=== PATIENT | female | born 1945 | race Caucasian/White ===

== ENCOUNTER → 2016-06-19 | Outpatient (CLI) | payer OTHER, MEDICARE | LOC: FIMAGING 10:24 | PROVIDERS: ATTEND Physician Assistant | DX: R06.00 Dyspnea, unspecified (principal) ==

== ENCOUNTER 2016-06-25 00:29 | Observation (INO) | payer OTHER, MEDICARE ==
[2016-06-25] MEDS ORDERED: ASPIRIN 325 MG TAB PO ONE (00:40)
--- NOTE | 2016-06-25 01:01 | CPEKG ---
Heart Rate: 80 RR Interval: 750 P-R Interval: 176 QRSD Interval: 72 QT Interval: 380 QTC Interval: 439 P [place]: 63 QRS [place]: 1 T Wave [place]: 46 EKG Severity - ABNORMAL ECG - EKG Impression: SINUS RHYTHM EKG Impression: ABNRM R PROG, CONSIDER ASMI OR LEAD PLACEMENT Electronically Signed By: Donald Elam 25-Jun-2016 02:30:25
--- NOTE | 2016-06-25 01:07 | EDPHY ---
H & P Stated Complaint: Low BP reading; dizziness, syncopal episode, nasal congestion Time Seen by Provider: 06/25/16 00:45 HPI/ROS: Chief Complaint: Syncope HPI: 71-year-old female presenting after a syncopal event about an hour and half prior to arrival. Patient states that she has had a sinus type up straight respiratory infection for the past few days. She was seen by her primary care physician last Tuesday and her blood pressure is noted be the 180s. Her doctor has been having her monitor her blood pressure daily. Patient states that she was up at around 11:30 a.m. and decided to check her blood pressure at that time. She was sitting down at the table in checking her blood pressure was noted that it was 99/57. Immediately after that she felt lightheaded and had a witnessed syncopal episode. Patient was noted to be diaphoretic by her at that time. She was unresponsive for at least 10- 20 seconds. She did not fall or hit her head. Patient states that she did take a lisinopril 3 days ago but after that her blood pressure was 90/8 and she felt lightheaded with that and so has not been taking any further medications. She also has been having episodes of feeling her heart fluttering for the past several months. She is scheduled to see a ambulatory technologist for further evaluation. She has been having some viral upper respiratory symptoms and been taking some Mucinex. No cough. No nausea or vomiting. No chest pain or shortness of breath. No fevers or chills. She has not had any palpitations recently. ROS: 10 point Review of Systems is negative except as noted in the HPI. PMH: Hypoparathyroidism Medications: Vitamin-D and calcium Allergies: Sulfa Social History: No smoking, occasional alcohol, no recreational drug use Family History: Has a family history of heart disease in her sister and her uncle. Father had multiple CVAs. Physical Exam: Gen: Awake, Alert, No Distress HEENT: Nose: no rhinorrhea Eyes: PERRLA, EOMI Mouth: Moist mucosa Neck: Supple, no JVD Chest: nontender, lungs clear to auscultation Heart: S1, S2 normal, no murmur Abd: Soft, non-tender, no guarding Back: no CVA tenderness, no midline tenderness Ext: no edema, non-tender Skin: no rash Neuro: CN II-XII intact, Sensation grossly intact, Strength 5/5 in bilateral upper and lower extremities - Personal History Current Tetanus/Diphtheria Vaccine: Yes Current Tetanus Diphtheria and Acellular Pertussis (TDAP): No - Medical/Surgical History Hx Asthma: No Hx Chronic Respiratory Disease: No Hx Diabetes: No Hx Cardiac Disease: No Hx Renal Disease: No Hx Cirrhosis: No Hx Alcoholism: No Hx HIV/AIDS: No Hx Splenectomy or Spleen Trauma: No Other PMH: denies - Social History Smoking Status: Former smoker Constitutional: Initial Vital Signs Temperature (C) 36.5 C 06/25/16 00:34 Heart Rate 88 06/25/16 00:34 Respiratory Rate 20 06/25/16 00:34 Blood Pressure 135/90 H 06/25/16 00:34 O2 Sat (%) 99 06/25/16 00:34 O2 Delivery Mode Room Air Allergies/Adverse Reactions: Sulfa (Sulfonamide Antibiotics) Allergy (Verified 06/10/09 15:21) sulfabenzamide [Sulfabenzamide] Allergy (Verified 06/10/09 15:21) Home Medications: Medication Instructions Recorded Fosamax 06/10/09 Medical Decision Making - Diagnostics EKG Interpretation: EC, sinus rhythm with a rate of 80. Normal axis, normal intervals, there is poor R-wave progression. No acute ST or T-wave changes. ED Course/Re-evaluation: CBC, electrolytes and troponin are unremarkable. Patient has been resting comfortably with a normal blood pressure. I have discussed with , hospitalist. Will admit to telemetry for syncope workup. - Data Points Laboratory Results: Laboratory Results 06/25/16 01:10 06/25/16 01:10 06/25/16 06/25/16 01:10 01:10 WBC 7.20 10^3/uL 10^3/uL (3.80-9.50) RBC 4.72 10^6/uL 10^6/uL (4.18-5.33) Hgb 15.3 g/dL g/dL (12.6-16.3) Hct 44.6 % % (38.0-47.0) MCV 94.5 fL fL (81.5-99.8) MCH 32.4 pg pg (27.9-34.1) MCHC 34.3 g/dL g/dL (32.4-36.7) RDW 12.0 % % (11.5-15.2) Plt Count 206 10^3/uL 10^3/uL (150-400) MPV 11.5 fL fL (8.7-11.7) Neut % (Auto) 69.0 % % (39.3-74.2) Lymph % (Auto) 16.5 % % (15.0-45.0) [place] % (Auto) 12.6 % % (4.5-13.0) Eos % (Auto) 1.0 % % (0.6-7.6) Baso % (Auto) 0.6 % % (0.3-1.7) Nucleat RBC Rel Count 0.0 % % (0.0-0.2) Absolute Neuts (auto) 4.97 10^3/uL 10^3/uL (1.70-6.50) Absolute Lymphs (auto) 1.19 10^3/uL 10^3/uL (1.00-3.00) Absolute Monos (auto) 0.91 10^3/uL H 10^3/uL (0.30-0.80) Absolute Eos (auto) 0.07 10^3/uL 10^3/uL (0.03-0.40) Absolute Basos (auto) 0.04 10^3/uL 10^3/uL (0.02-0.10) Absolute Nucleated RBC 0.00 10^3/uL 10^3/uL (0-0.01) Immature Gran % 0.3 % % (0.0-1.1) Immature Gran # 0.02 10^3/uL 10^3/uL (0.00-0.10) Sodium 140 mEq/L mEq/L (134-144) Potassium 4.3 mEq/L mEq/L (3.5-5.2) Chloride 102 mEq/L mEq/L (97-110) Carbon Dioxide 22 mEq/l mEq/l (22-31) Anion Gap 16 mEq/L mEq/L (8-16) BUN 12 mg/dL mg/dL (7-23) Creatinine 0.8 mg/dL mg/dL (0.6-1.0) Estimated GFR > 60 Glucose 144 mg/dL H mg/dL (70-100) Calcium 10.0 mg/dL mg/dL (8.5-10.4) Troponin I < 0.012 ng/mL ng/mL (0-0.034) Departure - Departure Disposition: [facility] Inpatient Acute Clinical Impression: Syncope Condition: Fair Referrals: Minal Kaur PA [Primary Care Provider] - As per Instructions
[2016-06-25] MEDS ORDERED: ASPIRIN 81 MG CHEWABLE TAB ONE (01:09)
[2016-06-25 01:15] LABS: % IMMATURE GRANULYOCYTES 0.3 % (0.0-1.1); ABSOLUTE IMMATURE GRANULOCYTES 0.02 10^3/uL (0.00-0.10); ADD DIFF? NO; ADD MORPH? NO; ADD SCAN? NO; ATYPICAL LYMPHOCYTE FLAG 10 (0-99); FRAGMENT RBC FLAG 0 (0-99); HEMATOCRIT 44.6 % (38.0-47.0); HEMOGLOBIN 15.3 g/dL (12.6-16.3); LEFT SHIFT FLG 0 (0-99); LIPEMIA HEMOLYSIS FLAG 90 (0-99); MEAN CELL HEMOGLOBIN 32.4 pg (27.9-34.1); MEAN CELL HEMOGLOBIN CONCENTR. 34.3 g/dL (32.4-36.7); MEAN CELL VOLUME 94.5 fL (81.5-99.8); MEAN PLATELET VOLUME 11.5 fL (8.7-11.7); PLATELET CLUMPS FLAG 0 (0-99); PLATELET COUNT 206 10^3/uL (150-400); RED BLOOD CELL COUNT 4.72 10^6/uL (4.18-5.33)
[2016-06-25 01:40] LABS: ANION GAP 16 mEq/L (8-16); CARBON DIOXIDE 22 mEq/l (22-31); CHLORIDE 102 mEq/L (97-110); CREATININE 0.8 mg/dL (0.6-1.0); GLOMERULAR FILTRATION RATE > 60; GLUCOSE 144 mg/dL (70-100); POTASSIUM 4.3 mEq/L (3.5-5.2); SODIUM 140 mEq/L (134-144)
[2016-06-25 01:52] LABS: TROPONIN I < 0.012 ng/mL (0-0.034)
[2016-06-25 02:12] VITALS: RESP 16; TEMP 97.9
[2016-06-25 02:29] LABS: COLOR YELLOW; LEUKOCYTE ESTERASE,URINE NEGATIVE (NEGATIVE); NITRITE,URINE NEGATIVE (NEGATIVE)
[2016-06-25 03:36] VITALS: BP 140/81; PULSE 78; O2SAT 95
--- NOTE | 2016-06-25 07:57 | GHP ---
[f rep st] HISTORY AND PHYSICAL DATE OF ADMISSION: 06/25/2016 CHIEF COMPLAINT: Syncope. HISTORY OF PRESENT ILLNESS: This is a 71-year-old female, with no significant past medical history. She states over the last several months she has been having episodes of heart fluttering. It feel s like her heart is going fast and fairly regular, and only last short periods of time. She has had some mild dizziness associated with this. She saw her primary care doctor. She saw her endocrinol ogist and mentioned it, and checked her thyroid which was normal. She is to follow up with her [facility] doctor who is going to refer her to Cardiology. She had an appointment today with the card iologist. However, she has developed some respiratory tract infection type symptoms and was not fee ling well overall. Around 11:30 she woke up not feeling well. When she saw her primary care doctor several days ago, her blood pressure was high and she was given lisinopril. Even though her subseq uent blood pressures were low she did start that, and took 1 dose on Tuesday, and her blood pressure s dropped into the 90s. She stopped taking that medication. Last night around 11:30, she got up an d was not feeling well. She measured her blood pressure and it seemed like he was in the 70s. She did not notice her heart rate at that time, and she was not feeling that fluttering sensation. She then felt quite dizzy and had a brief syncopal episode that lasted about 10 seconds, and then she wo ke up and said to her "was I asleep?" She has not had any chest pain throughout all of this . She states that she has been getting some slight amount of exertional chest pain over the last se veral months, and a little bit of decreased exercise tolerance. This morning she is feeling well. Her blood pressures are in the 140s. REVIEW OF SYSTEMS: A 10-point review of systems was obtained and negative. PAST MEDICAL HISTORY: Hyperparathyroidism. MEDICATIONS: None. SOCIAL HISTORY: No smoking. Lives with her . FAMILY HISTORY: Father had strokes. Uncles with coronary disease. PHYSICAL EXAM: VITAL SIGNS: Afebrile, blood pressure is 140/81, heart rate 78, oxygen saturation 9 5% on room air. GENERAL: The patient is well developed, in no apparent distress. HEENT: Nonicteri c sclerae. Extraocular movements intact. Moist mucous membranes. NECK: Supple. No thyromegaly. LUNGS: Good effort. Clear to auscultation bilaterally. CARDIOVASCULAR: Regular rate and rhythm. No murmurs, rubs, or gallops. ABDOMEN: Positive bowel sounds. Soft, nontender, nondistended. N o hepatosplenomegaly. EXTREMITIES: No clubbing, cyanosis, or edema. SKIN: Without rash. Warm, dr ovalle, intact. NEUROLOGIC: Alert and oriented x3. Moving all 4 extremities equally. PSYCH: Normal mo od and affect. LABS: CBC is normal. Chemistry is normal, with 2 negative troponins. Urine is negative. EKG shows normal sinus rhythm with no ischemic changes. ASSESSMENT: The patient is a 71-year-old female, who presented with a syncopal episode. PLAN: Syncope. The patient did have a prodrome of some dizziness and then after she woke up, she w ent into a cold sweat. I think these seem to be more related to vasovagal. She did not notice any heart fluttering as before. Her EKG is nonischemic and her cardiac enzymes have been negative x2. She does not have any chest pain and never did. She has been having blood pressure variations the l ast few days, and was on medication a few days ago. I believe that she definitely needs a Holter mo nitor and probably an echocardiogram, and perhaps even a stress test. I think this can be done outp atient. I do not see any evidence of acute coronary syndrome going on at this point. She may well have some type of arrhythmia like atrial fibrillation or flutter, but this will need to be diagnosed with Holter monitoring. She have an appointment with her agile coach today, and I think she could maybe get that back, especially since she has been in the hospital. She does not want to stay in [facility] and there was some concern about cost in terms of observation status and Medicare. I th ink she can be discharged this morning, and see if she can get in to see the agile coach later torashawn y. I have instructed her to call at exactly 8 a.m. and state that she was in the hospital and needs a followup. The patient and are in agreement with this plan. /[id number]/MODL
== END 2016-06-25 07:45 | disposition home or self-care (01) ==
LOC: F2W 03:25
PROVIDERS: ADMIT Internal Medicine; ATTEND Internal Medicine
DX: R55 Syncope and collapse (principal)
CPT/HCPCS: 93005; 99285; G0378

== ENCOUNTER → 2016-07-05 | Outpatient (CLI) | payer OTHER, MEDICARE | LOC: BHFA 09:00 | PROVIDERS: ATTEND Internal Medicine Interventional Cardiology | DX: R00.2 Palpitations (principal); R55 Syncope and collapse; I10 Essential (primary) hypertension ==

== ENCOUNTER → 2016-07-07 | Outpatient (CLI) | payer OTHER, MEDICARE | LOC: BHFA 09:15 | PROVIDERS: ATTEND Internal Medicine Cardiovascular Disease | DX: R55 Syncope and collapse (principal) ==

== ENCOUNTER → 2016-07-09 | Outpatient (CLI) | payer OTHER, MEDICARE | LOC: FIMAGING 07:14 | PROVIDERS: ATTEND Internal Medicine Cardiovascular Disease | DX: R19.8 Other specified symptoms and signs involving the digestive system and abdomen (principal); R00.2 Palpitations; R55 Syncope and collapse; I10 Essential (primary) hypertension ==

== ENCOUNTER → 2016-07-09 | Outpatient (CLI) | payer OTHER, MEDICARE | LOC: BHFA 09:00 | PROVIDERS: ATTEND Internal Medicine Cardiovascular Disease | DX: R00.2 Palpitations (principal); R55 Syncope and collapse ==

== ENCOUNTER 2016-07-19 09:01 | Emergency (ER) | payer OTHER, MEDICARE ==
--- NOTE | 2016-07-19 09:35 | UCPHY ---
H & P Time Seen by Provider: 07/19/16 09:19 Patient Type: New HPI/ROS: CHIEF COMPLAINT: Skin rash HISTORY OF PRESENT ILLNESS: Patient is otherwise healthy generally a but had an ED visit on June 25 of this year for syncope. Currently on metoprolol. She presents for a rash on both legs on the back which she noticed today. Not painful or itchy. No recent fall injury or trauma. No bruising or bleeding. No throat swelling wheezing or fever. REVIEW OF SYSTEMS: Otherwise negative PAST MEDICAL HISTORY: Hyperparathyroid, hypertension, right knee meniscus surgery and right hand surgery Social history: Nonsmoker General Appearance: Alert and conversant, cooperative. No angioedema. No intraoral rash Lungs clear to auscultation with no wheezing. Patient has very faint reticular rash in the back of both legs. No other rash seen. No urticaria, no bruising or petechiae, not hot to the touch in the back of the legs. Compartments are soft and no calf tenderness. Emergency Department course/MDM: Patient is a rash which does not appear to be dangerous in nature or an acute medical emergency. Emphasized to the patient that I do not know for sure with this is but I think it does not appear acutely emergent, she can monitor for signs of change or other symptoms. Smoking Status: Former smoker Constitutional: Initial Vital Signs Temperature (C) 36.6 C 07/19/16 09:15 Heart Rate 80 07/19/16 09:15 Respiratory Rate 18 07/19/16 09:15 Blood Pressure 190/83 H 07/19/16 09:15 O2 Sat (%) 96 07/19/16 09:15 O2 Delivery Mode Room Air Allergies/Adverse Reactions: Sulfa (Sulfonamide Antibiotics) Allergy (Verified 07/19/16 09:36) sulfabenzamide [Sulfabenzamide] Allergy (Verified 07/19/16 09:36) Home Medications: Medication Instructions Recorded Fosamax 06/10/09 Metoprolol Succinate 07/19/16 MDM/Departure - Depart Disposition: Home, Routine, Self-Care Clinical Impression: Rash Condition: Good Instructions: Acute Rash (ED) Additional Instructions: Please return or follow up with your primary care provider if this rash becomes painful or itchy, if you get a fever, any trouble breathing or swallowing. Continue medications as prescribed. Referrals: Minal Kaur PA [Primary Care Provider] - As per Instructions - PQRS PQRS Measurement: 134: Depression screening and followup, PRIME MD-PHQ2 (12 years and older) Over the last 2 weeks, how often have you been bothered by any of the following problems? 1. Feeling down, depressed, or hopeless? 2. Little interest or pleasure in doing things? Patient answered no to both 1 and 2 130: Documentation of medications. Reviewed all patient medications, doses, route and frequency. 226: Do you smoke? No. 47: 65 and older: Advanced care planning. Patient designates surrogate decision maker as spouse . Patient has advanced directive. 51: 18 years old and older with diagnosis of COPD, spirometry performance. Patient has no history of COPD 52: 18 years old and older with COPD and symptoms of COPD or FEV1<60% predicted prescribed a B Agonist. Patient has no history of COPD.
[2016-07-19 09:39] VITALS: PULSE 80; RESP 18; TEMP 97.9; O2SAT 96
[2016-07-19 10:52] VITALS: BP 156/93
== END 2016-07-19 09:48 | disposition home or self-care (01) ==
LOC: CED 09:01
DX: R21 Rash and other nonspecific skin eruption (principal); Z87.891 Personal history of nicotine dependence
CPT/HCPCS: 99202-PO; G0463-PO

== ENCOUNTER → 2016-08-11 | Outpatient (CLI) | payer OTHER, MEDICARE | LOC: FIMAGING 08:02 | PROVIDERS: ATTEND Family Medicine | DX: R19.09 Other intra-abdominal and pelvic swelling, mass and lump (principal); R10.9 Unspecified abdominal pain; N88.8 Other specified noninflammatory disorders of cervix uteri ==

== ENCOUNTER → 2016-12-08 | Outpatient (CLI) | payer OTHER, MEDICARE | LOC: FIMAGING 15:09 | PROVIDERS: ATTEND Physician Assistant | DX: Z12.31 Encounter for screening mammogram for malignant neoplasm of breast (principal); Z80.3 Family history of malignant neoplasm of breast | CPT/HCPCS: G0202 ==

== ENCOUNTER 2017-06-19 02:54 | Emergency (ER) | payer OTHER, MEDICARE ==
[2017-06-19 02:59] VITALS: TEMP 97.7
[2017-06-19] MEDS ORDERED: ASPIRIN 81 MG CHEWABLE TAB PO ONE (03:04)
[2017-06-19] MEDS ORDERED: NS 500 ML IV ONE (03:04)
--- NOTE | 2017-06-19 03:05 | EDPHY ---
H & P Stated Complaint: CP Time Seen by Provider: 06/19/17 03:00 HPI/ROS: HPI CHIEF COMPLAINT: Chest pain and hypertension HISTORY OF PRESENT ILLNESS: This patient is 72-year-old female she presents emergency room with chest discomfort. This woke her from sleep around 215 in the morning it is now 3 o'clock in the morning. She had a brief episode of substernal squeezing chest pain. It is rather severe lasted a minute. She got up and took her blood pressure noted her blood pressure was in the 150 systolic. She then tried to go back to sleep and woke up again with worsening chest discomfort lasting a minute and a half substernal squeezing sensation. I did not radiate anywhere. She had no nausea or vomiting with it no diaphoresis no referred pain. She took her blood pressure again was in the 190 systolic so she decided come to the emergency room for evaluation. Currently upon arrival she has no chest pain. She is noted be hypertensive and anxious. Past Medical History: Hypertension, rotator cuff injury Past Surgical History: No recent surgery Social History: Denies drugs alcohol tobacco. Family History: Noncontributory ROS REVIEW OF SYSTEMS: A comprehensive 10 point review of systems is otherwise negative aside from elements mentioned in the history of present illness. Exam Constitutional appears well nontoxic no acute distress, slightly anxious, triage nursing summary reviewed, vital signs reviewed, awake/alert. Eyes normal conjunctivae and sclera, EOMI, PERRLA. HENT normal inspection, atraumatic, moist mucus membranes, no epistaxis, neck supple/ no meningismus, no raccoon eyes. Respiratory clear to auscultation bilaterally, normal breath sounds, no respiratory distress, no wheezing. Cardiovascular rate normal, regular rhythm, no murmur, no edema, distal pulses normal. Gastrointestinal soft, non-tender, no rebound, no guarding, normal bowel sounds, no distension, no pulsatile mass. Genitourinary no CVA tenderness. Musculoskeletal no midline vertebral tenderness, full range of motion, no calf swelling, no tenderness of extremities, no meningismus, good pulses, neurovascularly intact. Skin pink, warm, & dry, no rash, skin atraumatic. Neurologic awake, alert and oriented x 3, AAOx3, moves all 4 extremities equally, motor intact, sensory intact, CN II-XII intact, normal cerebellar, normal vision, normal speech. Psychiatric normal mood/affect. Heme/Lymph/Immune no lymphadenopathy. Differential diagnosis includes but is not limited to: ACS, atypical chest pain , pneumothorax, pneumonia, pulmonary embolism, aortic dissection, congestive heart failure, tumor, musculoskeletal pain, esophageal pain, GERD, peptic ulcer disease, pancreatitis Medical Decision Making: Plan for this patient IV establishment IV fluid bolus , full-dose aspirin, chest x-ray, EKG, D-dimer, troponin, rule out acute coronary syndrome. Re-evaluation: EKG interpretation by me on record in [employer] system. Impression time of EKG 3:07 a.m., sinus rhythm rate of [address] depression in lead V4 V5 V6. Otherwise no ST elevation. ED x-ray chest one view: Negative for acute cardiopulmonary disease. Source: Patient - Personal History Current Tetanus Diphtheria and Acellular Pertussis (TDAP): Yes - Medical/Surgical History Hx Asthma: No Hx Chronic Respiratory Disease: No Hx Diabetes: No Hx Cardiac Disease: No Hx Renal Disease: No Hx Cirrhosis: No Hx Alcoholism: No Hx HIV/AIDS: No Hx Splenectomy or Spleen Trauma: No Other PMH: denies. right knee meniscus surgery & trigger finger on right hand on middle finger, HTN, GRAND TRAVERSE, TORN ROTATOR CUFF R - Social History Smoking Status: Former smoker Constitutional: Initial Vital Signs Temperature (C) 36.5 C 06/19/17 02:57 Heart Rate 78 06/19/17 02:57 Respiratory Rate 16 06/19/17 02:57 Blood Pressure 178/85 H 06/19/17 02:57 O2 Sat (%) 97 06/19/17 02:57 O2 Delivery Mode Room Air Allergies/Adverse Reactions: Sulfa (Sulfonamide Antibiotics) Allergy (Verified 07/19/16 09:36) sulfabenzamide [Sulfabenzamide] Allergy (Verified 07/19/16 09:36) Home Medications: Medication Instructions Recorded Calcium Carbonate [Oyster Shell 1,000 mg PO BID 06/19/17 Calcium 500 mg (*)] Herbals/Supplements -Info Only 1 ea PO DAILY 06/19/17 Metoprolol Succinate [Toprol Xl] 25 mg PO DAILY@18 06/19/17 Medical Decision Making - Data Points Laboratory Results: Laboratory Results 06/19/17 03:05 06/19/17 03:05 Medications Given: Discontinued Medications Aspirin (Aspirin) 324 mg PO EDNOW ONE Stop: 06/19/17 03:05 Last Admin: 06/19/17 03:32 Dose: 324 mg Sodium Chloride (Ns) 500 mls @ 0 mls/hr IV EDNOW ONE; Wide Open PRN Reason: Protocol Stop: 06/19/17 03:05 Last Admin: 06/19/17 03:33 Dose: 500 mls Departure - Departure Disposition: [facility] Inpatient Acute Clinical Impression: Chest pain Qualifiers: Chest pain type: unspecified Qualified Code(s): R07.9 - Chest pain, unspecified Hypertension Qualifiers: Hypertension type: unspecified Qualified Code(s): I10 - Essential (primary) hypertension Condition: Good Additional Instructions: No vigorous exercise until you have had your stress test Avoid caffeine for now into the of had her stress test You should hear from Dr. Harvey office tomorrow about scheduling a Lexiscan stress test, however if you do not hear from them call at [phone] to arrange the test. If you feel like he may be having a heart attack or other concerning problems she return to the ER. Symptoms of heart attack could include chest discomfort like he had previously we may feels similar discomfort in the neck jaw shoulder or arm or between her shoulder blades. You may also have shortness of breath nausea or sweating. Any symptoms like this that persist for more than just a few minutes should promptly to return for evaluation. Referrals: Minal Kaur PA [Primary Care Provider] - As per Instructions
--- NOTE | 2017-06-19 03:12 | CPEKG ---
Heart Rate: 87 RR Interval: 690 P-R Interval: 204 QRSD Interval: 82 QT Interval: 360 QTC Interval: 433 P [place]: 63 QRS [place]: 0 T Wave [place]: 43 EKG Severity - ABNORMAL ECG - EKG Impression: SINUS RHYTHM EKG Impression: ABNRM R PROG, CONSIDER ASMI OR LEAD PLACEMENT Electronically Signed By: Flaco Garg 20-Jun-2017 21:33:54
[2017-06-19 03:37] LABS: PLATELET COUNT 200 10^3/uL (150-400)
[2017-06-19 03:48] LABS: INR 0.96 (0.83-1.16)
[2017-06-19 04:00] LABS: CREATINE KINASE 49 IU/L (0-156)
[2017-06-19] MEDS ORDERED: ONDANSETRON 4 MG/2 ML VIAL IVP PRN (05:02)
[2017-06-19] MEDS ORDERED: ACETAMINOPHEN 325 MG TAB PO PRN (05:02)
[2017-06-19] MEDS ORDERED: ONDANSETRON DISINTEGRATING 4 MG TAB PO PRN (05:02)
--- NOTE | 2017-06-19 05:34 | PDGENHP ---
History and Physical - Chief Complaint Chest pain - History of Present Illness 72 yo F w/ no significant PMHx presents with chest pain. Patient was awoken from sleep by severe central chest pain around 2:30 AM. The pain lasted 1 minute. The pain recurred a few minutes later and that time it lasted closer to 2 minutes. After that she came to the ED. Evaluation in ED unremarkable. History Information - Allergies/Home Medication List Allergies/Adverse Reactions: Sulfa (Sulfonamide Antibiotics) Allergy (Verified 07/19/16 09:36) sulfabenzamide [Sulfabenzamide] Allergy (Verified 07/19/16 09:36) Home Medications: Metoprolol Succinate 07/19/16 [Last Taken Unknown] I have personally reviewed and updated: family history, medical history - Past Medical History no pertinent PMH - Family History Positive for: stroke - Social History Smoking Status: Former smoker Review of Systems Review of Systems: ROS: 10pt was reviewed & negative except for what was stated in HPI & below Physical Exam Physical Exam: Temp Pulse Resp BP Pulse Ox 36.5 C 73 16 162/90 H 98 06/19/17 02:57 06/19/17 03:33 06/19/17 03:33 06/19/17 03:33 06/19/17 03:33 Constitutional: no apparent distress, not in pain Eyes: PERRL, EOMI Ears, Nose, Mouth, Throat: moist mucous membranes, no oral mucosal ulcers Cardiovascular: regular rate and rhythym, no murmur, rub, or gallop Respiratory: no respiratory distress, no rales or rhonchi Gastrointestinal: normoactive bowel sounds, soft, non-tender abdomen Skin: warm, normal color Musculoskeletal: full muscle strength, no muscle tenderness Neurologic: AAOx3, CN II-XII Intact Psychiatric: interacting appropriately, not anxious Lab Data & Imaging Review 06/19/17 03:05 06/19/17 03:05 WBC 7.56 10^3/uL (3.80-9.50) 06/19/17 03:05 RBC 4.28 10^6/uL (4.18-5.33) 06/19/17 03:05 Hgb 13.8 g/dL (12.6-16.3) 06/19/17 03:05 Hct 39.8 % (38.0-47.0) 06/19/17 03:05 MCV 93.0 fL (81.5-99.8) 06/19/17 03:05 MCH 32.2 pg (27.9-34.1) 06/19/17 03:05 MCHC 34.7 g/dL (32.4-36.7) 06/19/17 03:05 RDW 12.4 % (11.5-15.2) 06/19/17 03:05 Plt Count 200 10^3/uL (150-400) 06/19/17 03:05 MPV 11.3 fL (8.7-11.7) 06/19/17 03:05 Neut % (Auto) 54.4 % (39.3-74.2) 06/19/17 03:05 Lymph % (Auto) 30.7 % (15.0-45.0) 06/19/17 03:05 [place] % (Auto) 11.4 % (4.5-13.0) 06/19/17 03:05 Eos % (Auto) 2.4 % (0.6-7.6) 06/19/17 03:05 Baso % (Auto) 0.8 % (0.3-1.7) 06/19/17 03:05 Nucleat RBC Rel Count 0.0 % (0.0-0.2) 06/19/17 03:05 Absolute Neuts (auto) 4.12 10^3/uL (1.70-6.50) 06/19/17 03:05 Absolute Lymphs (auto) 2.32 10^3/uL (1.00-3.00) 06/19/17 03:05 Absolute Monos (auto) 0.86 10^3/uL (0.30-0.80) H 06/19/17 03:05 Absolute Eos (auto) 0.18 10^3/uL (0.03-0.40) 06/19/17 03:05 Absolute Basos (auto) 0.06 10^3/uL (0.02-0.10) 06/19/17 03:05 Absolute Nucleated RBC 0.00 10^3/uL (0-0.01) 06/19/17 03:05 Immature Gran % 0.3 % (0.0-1.1) 06/19/17 03:05 Immature Gran # 0.02 10^3/uL (0.00-0.10) 06/19/17 03:05 PT 13.0 SEC (12.0-15.0) 06/19/17 03:05 INR 0.96 (0.83-1.16) 06/19/17 03:05 APTT 25.6 SEC (23.0-38.0) 06/19/17 03:05 D-Dimer < 0.27 ug/mLFEU (0.00-0.50) 06/19/17 03:05 Sodium 143 mEq/L (135-145) 06/19/17 03:05 Potassium 4.2 mEq/L (3.5-5.2) 06/19/17 03:05 Chloride 107 mEq/L (97-110) 06/19/17 03:05 Carbon Dioxide 24 mEq/l (22-31) 06/19/17 03:05 Anion Gap 12 mEq/L (8-16) 06/19/17 03:05 BUN 17 mg/dL (7-23) 06/19/17 03:05 Creatinine 0.7 mg/dL (0.6-1.0) 06/19/17 03:05 Estimated GFR > 60 06/19/17 03:05 Glucose 100 mg/dL (70-100) 06/19/17 03:05 Calcium 10.0 mg/dL (8.5-10.4) 06/19/17 03:05 Magnesium 1.9 mg/dL (1.6-2.3) 06/19/17 03:05 Total Bilirubin 0.4 mg/dL (0.1-1.4) 06/19/17 03:05 Conjugated Bilirubin 0.2 mg/dL (0.0-0.5) 06/19/17 03:05 Unconjugated Bilirubin 0.2 mg/dL (0.0-1.1) 06/19/17 03:05 AST 29 IU/L (14-46) 06/19/17 03:05 ALT 37 IU/L (9-52) 06/19/17 03:05 Alkaline Phosphatase 69 IU/L (38-126) 06/19/17 03:05 Creatine Kinase 49 IU/L (0-156) 06/19/17 03:05 CK-MB (CK-2) Fraction 0.70 ng/mL (0.00-3.19) 06/19/17 03:05 Troponin I < 0.012 ng/mL (0.000-0.034) 06/19/17 03:05 NT-Pro-B Natriuret Pep 206 pg/mL (0-125) H 06/19/17 03:05 Total Protein 7.1 g/dL (6.3-8.2) 06/19/17 03:05 Albumin 4.3 g/dL (3.5-5.0) 06/19/17 03:05 Lipase 78 IU/L (23-300) 06/19/17 03:05 Visualized and Interpreted Chest x-ray results: Yes Chest X-Ray results: no infiltrate Visualized and Interpreted EKG results: Yes EKG Interpretation: Positive for: normal sinsus rhythm Assessment & Plan Assessment: 72 yo F w/ HTN presents with chest pain. Plan: 1. Chest pain - Atypical in that pain awoke patient from sleep and only lasted about 1 minutes. Sounds possibly consistent with esophageal spasm. With that said, noting age and HTN, reasonable to risk stratify. - Admit to PCU for observation - Monitor on telemetry, trend cardiac enzymes - Nuclear medicine stress test ordered (Took metoprolol last night, may not be able to reach target HR on treadmill) 2. HTN - On metoprolol as outpatient, mildly elevated so far here. CTM. Diet - NPO pending risk stratification Code - Full Ppx - LMWH Dispo - Admit under observation status
[2017-06-19 07:39] VITALS: RESP 16
[2017-06-19] MEDS ORDERED: ENOXAPARIN 40 MG/0.4 ML SYR SC SCH (09:00)
[2017-06-19] MEDS ORDERED: CALCIUM CARBONATE 500 MG TAB PO SCH (09:00)
--- NOTE | 2017-06-19 11:45 | PDDCSUM ---
Discharge Summary Discharge Summary: DISCHARGE DIAGNOSES: -chest pain, rule out for myocardial infarction -hypertension on metoprolol HOSPITAL COURSE SUMMARY: This patient was awakened during the night this past evening by some substernal chest pain that lasted several minutes and resolved. A few minutes later she had another episode that lasted more like 5-10 minutes and again resolved. There are no other associated symptoms. She has never had discomfort like this before. She describes it as an ache or pressure. She has been able to do her normal physical activities recently but her normal physical activities are fairly limited by other issues. She has had no recent fevers or respiratory infection type symptoms. In the ER she had initial a assessment including complete resolution of the presenting symptoms, normal cardiovascular and pulmonary examination, normal 12 lead EKG, and normal troponin. She was observed here on pvc monitor for approximately 10 hr and had no abnormalities there and had no changes on her repeat troponin. At this time she is able to walk through the it Department here without any difficulty or symptoms or changes on pvc monitor. We discussed with her the need to do a risk stratification stress testing which was to be planned as a Lexiscan stress test due to limited exercise capacity. However she had had some coffee here in the ER from her 's cup of coffee so this test can be done today. The current plan will be to send her home and schedule a Lexiscan stress test in the next day or [address] Leblanc who is her flooring mechanic. I reviewed her case in detail today with doctors Flaco Garg and Ki Martinez. PENDING TEST RESULTS: None MEDICATION CHANGES: None FOLLOW-UP PLAN: Dr. Lucrecia Leblanc is office will contact the patient tomorrow morning to arrange for a Lexiscan stress test in the next day or 2. INSTRUCTIONS: The patient and her have been given specific instructions regarding activity limitations between now and the time of her stress test. They have also been given very cleared description of warning symptoms to watch for heart attack or other concerning events that should prompt return to the ER. She knows to avoid caffeine prior to her Lexiscan stress test.
[2017-06-19 11:57] VITALS: BP 170/80; PULSE 71; O2SAT 97
[2017-06-19] MEDS ORDERED: METOPROLOL SUCCINATE XR 25 MG TAB PO SCH (18:00)
== END 2017-06-19 11:58 | disposition still patient (30) ==
LOC: UNDOADMOB 04:58
DX: R07.89 Other chest pain (principal); I10 Essential (primary) hypertension; Z87.891 Personal history of nicotine dependence
CPT/HCPCS: 71045; 93005; 99285; G0378; J1650

== ENCOUNTER → 2017-06-23 | Outpatient (CLI) | payer OTHER, MEDICARE | LOC: BHLMT 13:30 | PROVIDERS: ATTEND Internal Medicine Interventional Cardiology | DX: R07.9 Chest pain, unspecified (principal) | CPT/HCPCS: 78452; 93017; A9500; J2785 ==

== ENCOUNTER → 2018-01-23 | Outpatient (CLI) | payer OTHER, MEDICARE | LOC: FIMAGING 09:36 | PROVIDERS: ATTEND Physician Assistant | DX: Z12.31 Encounter for screening mammogram for malignant neoplasm of breast (principal); Z85.3 Personal history of malignant neoplasm of breast ==